=== PATIENT | female | born 1965 | race Caucasian/White ===

== ENCOUNTER 2018-09-26 06:43 | Day surgery (SDC) | payer BC ==
[2018-09-26] MEDS ORDERED: Midazolam 1 MG/ML 2 ML SDV IV ONE (06:44)
[2018-09-26] MEDS ORDERED: Propofol 200 MG/20 ML SDV IV ONE (06:44)
[2018-09-26] MEDS ORDERED: Lactated Ringers 1,000 ML IV SCH (06:45)
--- NOTE | 2018-09-26 08:16 | PCM.OPNOTE ---
- General Post-Op/Procedure Note Date of Surgery/Procedure: 09/26/18 Operative Procedure(s): c scope Findings: redundant colon scope to mid ascending colon unremarkable except for scattered diverticuli Pre Op Diagnosis: personal hx of colon polyp Post-Op Diagnosis: diverticulosis. redundant colon Anesthesia Technique: MAC Primary Surgeon: Juan De La Torre Anesthesia Provider: Liss Vanegas ([facility] CRNAS) Pathology: none Complications: None Condition: Good Free Text/Narrative:: see dictation
--- NOTE | 2018-09-26 11:13 | OR ---
DATE OF OPERATION: 09/26/2018 SURGEON: Juan De La Torre MD PROCEDURE PERFORMED: Colonoscopy. PREOPERATIVE DIAGNOSIS: Need for colon cancer screening. POSTOPERATIVE DIAGNOSIS: Normal colon to mid ascending colon. INDICATIONS FOR PROCEDURE: This is a 53-year-old white female, who presents for followup colonoscopy. Last scope was difficult due to redundant colon, required a barium enema to clear the colon. She did have a polyp removed from her descending colon at that time, and therefore we recommended a followup C scope at this point. DESCRIPTION OF OPERATION: After an excellent IV sedation was administered, digital rectal exam was performed. No marked abnormality was noted. Flexible colonoscope was inserted and advanced to the ascending colon. Maneuvers to advance to intubate the cecum were not successful. We do know she has a redundant colon from her previous study and required a BE to clear this portion of the intestine, and therefore we did not elicit many maneuvers to try to intubate the cecum. The scope was slowly withdrawn. The following findings were noted. Half of the ascending colon was unremarkable. Transverse colon was unremarkable. Descending colon was unremarkable. Sigmoid, occasional diverticula. Rectum and anus, unremarkable. Colon was deflated. The scope was removed. The patient tolerated the procedure well. We will be getting a barium enema to clear the remainder of the colon. /[id number] /MODL
== END 2018-09-26 09:22 | disposition home or self-care (01) ==
LOC: FB.SDS 06:43
PROVIDERS: ATTEND Surgery
DX: Z12.11 Encounter for screening for malignant neoplasm of colon (principal); K57.30 Diverticulosis of large intestine without perforation or abscess without bleeding; Q43.8 Other specified congenital malformations of intestine; K21.9 Gastro-esophageal reflux disease without esophagitis; E11.9 Type 2 diabetes mellitus without complications; G43.909 Migraine, unspecified, not intractable, without status migrainosus; R91.1 Solitary pulmonary nodule; E66.9 Obesity, unspecified; Z68.41 Body mass index [BMI] 40.0-44.9, adult; Z88.8 Allergy status to other drugs, medicaments and biological substances; Z87.891 Personal history of nicotine dependence; Z86.010 Personal history of colon polyps; Z79.84 Long term (current) use of oral hypoglycemic drugs; Z79.82 Long term (current) use of aspirin; Z79.899 Other long term (current) drug therapy
CPT/HCPCS: 45378; 82962; J2250; J2704; J7120